=== PATIENT | male | born 1965 | race African-American/Black ===

== ENCOUNTER 2020-08-22 02:30 | Inpatient (IN) ==
[2020-08-22 03:53] LABS: ABS Eosinophils 0.3 10^3/ul (0-0.6); ABS Monocytes 0.6 10^3/ul (0-0.8); ABS Neutrophils 3.6 10^3/ul (1.5-7.7); Eosinophil % 4.6 %; Hematocrit 32 % (42-52); Hemoglobin 10.4 g/dL (14.0-18.0); Lymphocyte % 30.3 %; Mean Corpuscular HGB Conc 33 g/dL (31-36); Mean Corpuscular Hemoglobin 27 pg (27-31); Mean Corpuscular Volume 82 fL (80-94); Mean Platelet Volume 8.1 fL (7.4-10.4); Nucleated Red Blood Cells % 0.1; Platelet Count 222 10^3/uL (150-450); Red Blood Count 3.88 10^6 /uL (4.18-5.48); Red Cell Distribution Width 16 % (10-15); White Blood Count 6.5 10^3/uL (3.5-10.8)
[2020-08-22 03:58] LABS: INR 1.18 (0.82-1.09)
[2020-08-22 04:03] LABS: Anion Gap 9 mmol/L (2-11); CO2 Carbon Dioxide 33 mmol/L (22-32); Calcium 8.9 mg/dL (8.6-10.3); Chloride 98 mmol/L (101-111); Potassium 3.5 mmol/L (3.5-5.0); Sodium 140 mmol/L (135-145)
[2020-08-22 04:09] LABS: ALT 24 U/L (7-52); AST 38 U/L (13-39); Albumin/Globulin Ratio 1.3 (1-3); Alkaline Phosphatase 56 U/L (34-104); Blood Urea Nitrogen 24 mg/dL (6-24); C Reactive Protein 9.25 mg/L (<8.01); EGFR African American 30.1 (>60); EGFR Non-African American 24.9 (>60); Glucose 130 mg/dL (70-100)
[2020-08-22 04:31] LABS: Troponin I 0.14 ng/mL (<0.03)
[2020-08-22] MEDS ORDERED: Furosemide 40 mg/4 ml IV VIAL IV ONE ×2 (05:49→14:00)
[2020-08-22] MEDS ORDERED: Albuterol HFA INHALER 8 gm MDI INH PRN (05:53)
[2020-08-22] MEDS ORDERED: Dextrose 50% Syringe 50 ml 25 GM/50 ML SYRINGE IV PUSH PRN (05:56)
[2020-08-22 07:50] LABS: Urine Appearance Clear; Urine Bilirubin Negative (Negative); Urine Blood 1+ (Negative); Urine Color Straw; Urine Glucose 3+(>=500 mg/dL) (Negative); Urine Ketones Negative (Negative); Urine Nitrite Negative (Negative); Urine Protein 1+(30 mg/dL) (Negative); Urine Specific Gravity 1.006 (1.010-1.030); Urine Urobilinogen Negative (Negative)
[2020-08-22 08:04] LABS: Troponin I 0.14 ng/mL (<0.03)
[2020-08-22 08:12] LABS: Urine Bacteria Absent (Absent); Urine Red Blood Cell 2+(6-10/hpf) (Absent); Urine White Blood Cell Absent (Absent)
[2020-08-22] MEDS: Aspirin EC 81 mg TAB.EC (enteric coated) PO SCH (08:41)
[2020-08-22 08:58] LABS: % Iron Saturation 12 % (15-55); Iron 50 ug/dL (50-212); Total Iron Binding Capacity 403 mcg/dL (250-450); Transferrin 288 mg/dL (203-362); Unsaturated Iron Binding < 388 ug/dL
[2020-08-22] MEDS ORDERED: Insulin GLARGINE 100 un/ml 10 ml VIAL SUBCUT SCH ×2 (09:00→12:00)
[2020-08-22] MEDS ORDERED: Umeclidinium 62.5 MDI(NF) MDI INH SCH (09:00)
[2020-08-22 09:17] LABS: Ferritin 25.9 ng/mL (24-336)
[2020-08-22 09:21] LABS: Vitamin B12 1048 pg/mL (180-914)
[2020-08-22] MEDS: SPIRIVA Respimat (tiotropium) 2.5 mcg/inh Inhaler INH SCH (09:23)
[2020-08-22] MEDS: Insulin GLARGINE 100 un/ml 10 ml VIAL SUBCUT SCH (13:29)
[2020-08-22] MEDS ORDERED: Perflutren Lipid Microsphere 3 ML VIAL ONE (14:21)
[2020-08-22] MEDS: Enoxaparin 30 MG/0.3 ML SYR SUBCUT SCH (21:48)
[2020-08-23 07:33] LABS: ABS Eosinophils 0.3 10^3/ul (0-0.6); ABS Lymphocytes 1.9 10^3/ul (1.0-4.8); ABS Monocytes 0.7 10^3/ul (0-0.8); ABS Neutrophils 3.7 10^3/ul (1.5-7.7); Eosinophil % 4.9 %; Hematocrit 30 % (42-52); Lymphocyte % 28.5 %; Mean Corpuscular HGB Conc 34 g/dL (31-36); Mean Corpuscular Hemoglobin 28 pg (27-31); Mean Corpuscular Volume 82 fL (80-94); Mean Platelet Volume 8.3 fL (7.4-10.4); Nucleated Red Blood Cells % 0.1; Platelet Count 204 10^3/uL (150-450); Red Blood Count 3.62 10^6 /uL (4.18-5.48); Red Cell Distribution Width 16 % (10-15); White Blood Count 6.7 10^3/uL (3.5-10.8)
[2020-08-23 07:47] LABS: Anion Gap 9 mmol/L (2-11); BUN/Creatinine Ratio 8.9 (8-20); Blood Urea Nitrogen 23 mg/dL (6-24); CO2 Carbon Dioxide 30 mmol/L (22-32); Calcium 8.1 mg/dL (8.6-10.3); Chloride 101 mmol/L (101-111); Cholesterol 95 mg/dL; EGFR African American 31.6 (>60); EGFR Non-African American 26.1 (>60); Glucose 165 mg/dL (70-100); HDL Cholesterol 26.3 mg/dL; LDL Cholesterol 48 mg/dL; Potassium 3.4 mmol/L (3.5-5.0); Sodium 140 mmol/L (135-145); Triglycerides 104 mg/dL
[2020-08-23] MEDS ORDERED: Potassium Chlor 20 meq TAB.ER PO ONE (08:03)
[2020-08-23] MEDS ORDERED: Bumetanide IV 0.25 MG/ML 4 ml VIAL (1 mg) SLOW PUSH ONE (09:14)
[2020-08-23] MEDS: Insulin GLARGINE 100 un/ml 10 ml VIAL SUBCUT SCH (09:34)
[2020-08-23] MEDS: Aspirin EC 81 mg TAB.EC (enteric coated) PO SCH (09:36)
[2020-08-23 09:57] LABS: Troponin I 0.12 ng/mL (<0.03)
[2020-08-23 10:24] LABS: Magnesium 1.7 mg/dL (1.9-2.7)
[2020-08-23] MEDS ORDERED: Magnesium Sulfate IV 3 GM in NS 0.9% 100 ml BAG 100 ML IVPB ONE (10:43)
[2020-08-23] MEDS: SPIRIVA Respimat (tiotropium) 2.5 mcg/inh Inhaler INH SCH (12:34)
[2020-08-23] MEDS: Enoxaparin 30 MG/0.3 ML SYR SUBCUT SCH (21:56)
[2020-08-24 08:26] LABS: Calcium 8.1 mg/dL (8.6-10.3); EGFR African American 35.4 (>60); EGFR Non-African American 29.2 (>60); Magnesium 2.2 mg/dL (1.9-2.7)
[2020-08-24] MEDS ORDERED: Bumetanide IV 0.25 MG/ML 4 ml VIAL (1 mg) SLOW PUSH ONE (09:50)
[2020-08-24] MEDS: SPIRIVA Respimat (tiotropium) 2.5 mcg/inh Inhaler INH SCH (11:46)
[2020-08-24] MEDS: Aspirin EC 81 mg TAB.EC (enteric coated) PO SCH (11:49)
[2020-08-24] MEDS: Insulin GLARGINE 100 un/ml 10 ml VIAL SUBCUT SCH (14:07)
[2020-08-24] MEDS ORDERED: Regadenoson 0.4 MG/5 ML SYRINGE ONE (14:20)
[2020-08-24 21:05] LABS: BUN/Creatinine Ratio 9.1 (8-20); Calcium 8.5 mg/dL (8.6-10.3); EGFR African American 33.9 (>60); Potassium 4.3 mmol/L (3.5-5.0)
[2020-08-24] MEDS: Enoxaparin 30 MG/0.3 ML SYR SUBCUT SCH (21:25)
[2020-08-25] MEDS ORDERED: NS 0.9% 1000 ml BAG 1,000 ML IV SCH (02:00)
[2020-08-25 06:06] LABS: ABS Eosinophils 0.3 10^3/ul (0-0.6); ABS Lymphocytes 1.6 10^3/ul (1.0-4.8); ABS Monocytes 0.7 10^3/ul (0-0.8); ABS Neutrophils 4.3 10^3/ul (1.5-7.7); Eosinophil % 4.3 %; Hematocrit 33 % (42-52); Hemoglobin 10.6 g/dL (14.0-18.0); Lymphocyte % 22.7 %; Mean Corpuscular HGB Conc 33 g/dL (31-36); Mean Corpuscular Hemoglobin 27 pg (27-31); Mean Corpuscular Volume 82 fL (80-94); Mean Platelet Volume 7.7 fL (7.4-10.4); Platelet Count 236 10^3/uL (150-450); Red Blood Count 3.95 10^6 /uL (4.18-5.48); Red Cell Distribution Width 16 % (10-15); White Blood Count 6.8 10^3/uL (3.5-10.8)
[2020-08-25 07:40] LABS: BUN/Creatinine Ratio 9.5 (8-20); Calcium 8.4 mg/dL (8.6-10.3); EGFR African American 37.6 (>60); EGFR Non-African American 31.1 (>60); Potassium 4.1 mmol/L (3.5-5.0)
[2020-08-25] MEDS: Aspirin EC 81 mg TAB.EC (enteric coated) PO SCH (08:02)
[2020-08-25] MEDS: SPIRIVA Respimat (tiotropium) 2.5 mcg/inh Inhaler INH SCH (08:03)
[2020-08-25] MEDS ORDERED: Midazolam 5 mg/5 ml VIAL 1 mg/ml 5 ml VIAL (5 mg) ONE (08:08)
[2020-08-25] MEDS ORDERED: fentaNYL 100 mcg/2 ml 50 MCG/ML VIAL ONE (08:08)
[2020-08-25] MEDS ORDERED: VERAPAMIL 2.5 MG/ML 2 ML VIAL ** 5 mg/2 ml ONE (08:08)
[2020-08-25] MEDS ORDERED: Heparin 1,000 UNIT/ML 10 ml (10,000 UNITS) CATHLAB/DIALYSIS ONE (08:08)
[2020-08-25] MEDS ORDERED: Heparin 2 UNITS/ML 1000 mls 2,000 ML IV ONE (08:09)
[2020-08-25] MEDS ORDERED: nitroGLYCERIN DRIP 25,000 MCG/250 ML BTL ONE (08:09)
[2020-08-25] MEDS ORDERED: Lidocaine 1% VIAL 10 MG/ML VIAL ONE (08:09)
[2020-08-25] MEDS ORDERED: Iodixanol 320 (CONTRAST) 100 ML SDV ONE (08:09)
[2020-08-25] MEDS ORDERED: Insulin GLARGINE 100 un/ml 10 ml VIAL SUBCUT SCH (09:00)
[2020-08-25 12:00] VITALS: BP 134/85
== END 2020-08-25 13:30 | disposition short-term general hospital (02) | DRG 192 ==
LOC: ED 02:30 → MEDTELE 02:30
PROVIDERS: ADMIT Hospitalist; ATTEND Internal Medicine